=== PATIENT | male | born 1985 | race Two or more races ===

== ENCOUNTER 2022-01-06 17:21 | Emergency (ER) | payer SELFPAY ==
[~2022-01-06] VITALS: Ht 167.6 cm; Wt 70.1 kg
[2022-01-06] MEDS ORDERED: IBUPROFEN 600 MG TAB PO ONE (19:00)
[2022-01-06 20:47] LABS: Urine Bacteria FEW /hpf (None Seen); Urine Blood 1+ /uL (Negative); Urine Mucus FEW (None Seen); Urine Specific Gravity 1.026 (1.001-1.035); Urine WBC 192 /hpf (0 - 3)
[2022-01-06] MEDS ORDERED: cefTRIAXone SOD 500 MG VL IM ONE (21:00)
[2022-01-06] MEDS ORDERED: CIPR-173 PO (21:03)
[2022-01-06] MEDS ORDERED: LIDOCAINE 1% HCL (LOCAL ANESTH.) INJ 20ML MDV ONE (23:16)
[2022-01-06 23:22] VITALS: BP 96/66
== END 2022-01-06 23:36 | disposition home or self-care (01) ==
LOC: ER 17:24
DX: N45.1 Epididymitis (principal); N39.0 Urinary tract infection, site not specified
CPT/HCPCS: 76870; 81001; 96372; 99284; J0696; J2001

== ENCOUNTER 2022-05-06 23:55 | Emergency (ER) | payer MEDICAID ==
[~2022-05-06] VITALS: Ht 167.6 cm; Wt 72.2 kg
[~2022-05-06 23:55] MED LIST: CIPR-173 PO
[2022-05-07] MEDS ORDERED: TERBUTALINE SULFATE 1 MG/ML 1ML VIAL SC ONE (00:45)
[2022-05-07] MEDS ORDERED: PSEUDOEPHEDRINE HCL 30 MG TAB PO ONE (00:45)
[2022-05-07] MEDS ORDERED: OXYCODONE W/ ACETAMINOPHEN 5/325MG TABLET PO ONE (01:15)
[2022-05-07] MEDS ORDERED: HYDROmorphone HCL 2 MG/ML VL/or syr IV ONE (02:45)
[2022-05-07] MEDS ORDERED: PHENYLEPHRINE INJ 10 MG in SODIUM CHL 0.9% 19 ML IR ONE (03:00)
[2022-05-07] MEDS ORDERED: PHENYLEPHRINE HCL 10 MG/ML VL ONE (03:34)
[2022-05-07] MEDS ORDERED: PSEU30TA3 PO (05:29)
[2022-05-07 05:30] VITALS: BP 136/96
[2022-05-07] MEDS ORDERED: PERCOT PO (05:38)
== END 2022-05-07 05:56 | disposition home or self-care (01) ==
LOC: ER 23:55
DX: N48.30 Priapism, unspecified (principal); T43.215A Adverse effect of selective serotonin and norepinephrine reuptake inhibitors, initial encounter; F17.210 Nicotine dependence, cigarettes, uncomplicated; F12.10 Cannabis abuse, uncomplicated; Z88.0 Allergy status to penicillin; Y92.89 Other specified places as the place of occurrence of the external cause
CPT/HCPCS: 96372; 96374; 99285; J1170; J2370; J3105